=== PATIENT | male | born 1995 | race Caucasian/White ===

== ENCOUNTER 2018-05-26 07:08 | Emergency (ER) | payer OTHER ==
[2018-05-26 07:14] VITALS: BP 140/74
[2018-05-26] MEDS ORDERED: DEXAMETHASONE 10 MG/ML VIAL PO STA (07:24)
--- NOTE | 2018-05-26 07:27 | ED Physician Documentation ---
PD HPI URI - Stated complaint Stated Complaint: CONGESTION/R EAR PAIN - Chief complaint Chief Complaint: Heent - History obtained from History obtained from: Patient - History of Present Illness Timing - onset: How many days ago (4) Timing duration: Days (4) Timing details: Gradual onset, Still present Associated symptoms: Ear pain, Nasal congestion, Rhinorrhea, Sinus pain, Dry cough Contributing factors: Sick contact, Travel Improves by: Rest, Medication Similar symptoms before: Has not had sx before Recently seen: Not recently seen - Additional information Additional information: 23-year-old male who is actively engaged in the [employer] recently traveled from [place] and he is developed congestion cough and sinus pain and pressure with pain in his ears as well. Review of Systems Constitutional: reports: Myalgias. denies: Fever Eyes: denies: Decreased vision Ears: reports: Ear pain Nose: reports: Rhinorrhea / runny nose, Congestion, Sinus pressure / pain Throat: denies: Sore throat Cardiac: denies: Chest pain / pressure, Palpitations Respiratory: reports: Cough. denies: Dyspnea GI: denies: Vomiting PD PAST MEDICAL HISTORY - Present Medications Home Medications: Ambulatory Orders Medication Instructions Recorded Confirmed Amox/Clav 875/125 [Augmentin] 1 each PO Q12H #20 tablet 05/26/18 - Allergies Allergies/Adverse Reactions: Allergies Allergy/AdvReac Type Severity Reaction Status Date / Time No Known Drug Allergies Allergy Verified 05/26/18 07:14 PD ED PE NORMAL - Vitals Vital signs reviewed: Yes (hypertensive mild ) - General General: Alert and oriented X 3, No acute distress, Well developed/nourished, Other (nasal quality to voice ) - HEENT HEENT: Atraumatic, PERRL, EOMI, Other (mild mid facial swelling right TM is inflamed along the umbo with rounding of the umbo. The left is dull and sclerotic. The pharynx is with 2+ cryptic tonsils without exudate. ) - Neck Neck: Supple, no meningeal sign, No bony TTP - Cardiac Cardiac: RRR, No murmur - Respiratory Respiratory: No respiratory distress, Clear bilaterally - Abdomen Abdomen: Soft, Non tender - Back Back: No CVA TTP, No spinal TTP - Derm Derm: Normal color, Warm and dry, No rash - Extremities Extremities: No deformity, No edema - Neuro Neuro: Alert and oriented X 3, peoplesoft developer 2-12 intact, No motor deficit, No sensory deficit, Normal speech Eye Opening: Spontaneous Motor: Obeys Commands Verbal: Oriented GCS Score: 15 - Psych Psych: Normal mood, Normal affect Results - Vitals Vitals: Vital Signs - 24 hr 05/26/18 07:10 Temperature 36.7 C Heart Rate 70 Respiratory 17 Rate Blood Pressure 140/74 H O2 Saturation 98 Oxygen O2 Source Room air PD MEDICAL DECISION MAKING - ED course Complexity details: considered differential, d/w patient ED course: 23-year-old male with significant congestion has right otitis and he is administered dexamethasone 10 mg orally and we will place him on some Augmentin. Departure - Departure Disposition: 01 Home, Self Care Clinical Impression: Otitis media Qualifiers: Otitis media type: suppurative Chronicity: acute Laterality: right Recurrence: non-recurrent Spontaneous tympanic membrane rupture: without spontaneous rupture Qualified Code(s): H66.001 - Acute suppurative otitis media without spontaneous rupture of ear drum, right ear Instructions: ED Otitis Media Acute Adult Follow-Up: [facility] [Provider Group] Prescriptions: Amox/Clav 875/125 [Augmentin] 1 each PO Q12H #20 tablet
== END 2018-05-26 07:32 | disposition home or self-care (01) ==
LOC: ED 07:08
DX: H66.001 Acute suppurative otitis media without spontaneous rupture of ear drum, right ear (principal); R09.81 Nasal congestion
CPT/HCPCS: 99283

== ENCOUNTER 2018-08-02 13:09 | Emergency (ER) | payer OTHER ==
[2018-08-02 13:16] VITALS: BP 131/79
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
== END 2018-08-02 14:16 | disposition home or self-care (01) ==
LOC: ED 13:09
DX: S40.012A Contusion of left shoulder, initial encounter (principal); V86.59XA Driver of other special all-terrain or other off-road motor vehicle injured in nontraffic accident, initial encounter; Y93.89 Activity, other specified; Y92.830 Public park as the place of occurrence of the external cause
CPT/HCPCS: 99282